=== PATIENT | female | born 1955 | race African-American/Black ===

== ENCOUNTER 2019-07-11 13:01 | Emergency (ER) | payer OTHER ==
[2019-07-11 13:11] VITALS: BP 182/83
[2019-07-11] MEDS ORDERED: ASPIRIN 81MG TABLET PO ONE (13:45)
[2019-07-11 14:41] LABS: BASOPHILS % 1.1 % (0.0-2.0); EOSINOPHILS % 2.4 % (0.0-5.0); HEMATOCRIT. 41.6 % (36.0-48.0); HEMOGLOBIN. 14.1 g/dL (12.0-16.0); LYMPHOCYTES % 42.2 % (20.0-50.0); MEAN CORPUSCULAR HEMOGLOBIN 28.5 pg (28.0-32.0); MEAN CORPUSCULAR VOLUME 84.2 fL (81.0-99.0); MEAN PLATELET VOLUME 8.8 fl (7.4-10.4); MONOCYTES % 10.5 % (2.0-8.0); NEUTROPHILS % 43.8 % (40.0-76.0); PLATELET 186 x1000/uL (130-400); RED BLOOD CELL COUNT 4.94 mill/uL (4.2-5.4); RED CELL DISTRIBUTION WIDTH 13.8 % (11.6-14.6)
[2019-07-11 14:43] LABS: CHLORIDE 108 mEq/L (98-107)
== END 2019-07-11 17:11 | disposition home or self-care (01) ==
LOC: ER 13:01
DX: R07.89 Other chest pain (principal); F41.9 Anxiety disorder, unspecified; F32.9 Major depressive disorder, single episode, unspecified; Z88.0 Allergy status to penicillin
CPT/HCPCS: 36415; 71045; 80053; 83880; 84484; 85025; 93005; 99285

== ENCOUNTER 2022-03-14 16:46 | Inpatient (IN) | payer OTHER, MEDICAID ==
[~2022-03-14] VITALS: Ht 154.9 cm; Wt 130.2 kg
[2022-03-14] MEDS ORDERED: METHYLPREDNISOLONE SOD SUCC 125 MG/2 ML VIAL IV STA (17:13)
[2022-03-14 17:51] LABS: BASOPHILS % 0.7 % (0.0-2.0); EOSINOPHILS % 5.9 % (0.0-5.0); HEMATOCRIT. 40.1 % (36.0-48.0); HEMOGLOBIN. 13.1 g/dL (12.0-16.0); LYMPHOCYTES % 41.8 % (20.0-50.0); MEAN CORPUSCULAR HEMOGLOBIN 27.6 pg (28.0-32.0); MEAN CORPUSCULAR VOLUME 84.2 fL (81.0-99.0); MEAN PLATELET VOLUME 8.2 fl (7.4-10.4); MONOCYTES % 7.5 % (2.0-8.0); NEUTROPHILS % 44.1 % (40.0-76.0); PLATELET 197 x1000/uL (130-400); RED BLOOD CELL COUNT 4.76 mill/uL (4.2-5.4); RED CELL DISTRIBUTION WIDTH 14.2 % (11.6-14.6)
[2022-03-14 18:07] LABS: CHLORIDE 109 mEq/L (98-107)
[2022-03-14] MEDS ORDERED: ALBUTEROL (0.083%) 2.5MG/3ML NEB HHN ONE (18:30)
[2022-03-14] MEDS ORDERED: ZOLPIDEM TARTRATE 5MG TABLET PO PRN (21:30)
[2022-03-14] MEDS ORDERED: IPRATROPIUM/ALBUTEROL 0.5-3(2.5)MG/3ML NEB NEB PRN (21:30)
[2022-03-14] MEDS ORDERED: GUAIFENESIN 200MG/10ML SUGAR FREE UDC PO PRN (21:30)
[2022-03-14] MEDS ORDERED: LEVOFLOXACIN 500MG PREMIX 100 ML IV SCH (21:30)
[2022-03-14] MEDS ORDERED: NITROGLYCERIN 0.4MG TABLET SL SL PRN (21:30)
[2022-03-14] MEDS ORDERED: ONDANSETRON HCL 4MG/2ML INJ IV PRN (21:30)
[2022-03-14] MEDS ORDERED: ACETAMINOPHEN 325MG TABLET PO PRN ×2 (21:30)
[2022-03-14] MEDS ORDERED: MAGNESIUM/ALUMINUM HYDROXIDE/SIMETHICONE 30ML UDC PO PRN (21:30)
[2022-03-14] MEDS ORDERED: IPRATROPIUM/ALBUTEROL 0.5-3(2.5)MG/3ML NEB HHN SCH (21:30)
[2022-03-14] MEDS ORDERED: ALBUTEROL (0.083%) 2.5MG/3ML NEB HHN PRN (21:45)
[2022-03-14] MEDS ORDERED: IPRATROPIUM BROMIDE (0.02%) 0.5MG/2.5ML NEB HHN PRN (21:45)
[2022-03-14 21:55] LABS: *AMPHETAMINES SCREEN URINE NEGATIVE (NEGATIVE); *BARBITURATES SCREEN URINE NEGATIVE (NEGATIVE); *BENZODIAZEPINES SCREEN URINE NEGATIVE (NEGATIVE); *COCAINE SCREEN URINE NEGATIVE (NEGATIVE); CANNABINOID URINE SCREEN NEGATIVE (NEGATIVE); METHADONE URINE SCREEN NEGATIVE (NEGATIVE); OPIATES URINE SCREEN PRESUMTIVE POSITIVE (NEGATIVE); PHENCYCLIDINE URINE SCREEN NEGATIVE (NEGATIVE)
[2022-03-14 22:03] LABS: T4 FREE 0.89 ng/dL (0.76-1.46)
[2022-03-14 22:27] LABS: FOLIC ACID (FOLATE) SERUM 13.2 ng/mL (>5.38)
[2022-03-14] MEDS: METHYLPREDNISOLONE SOD SUCC 125 MG/2 ML VIAL IV SCH (22:30)
[2022-03-15 05:07] LABS: HEMATOCRIT. 40.7 % (36.0-48.0); HEMOGLOBIN. 13.7 g/dL (12.0-16.0); MEAN CORPUSCULAR HEMOGLOBIN 28.3 pg (28.0-32.0); MEAN CORPUSCULAR VOLUME 83.9 fL (81.0-99.0); MEAN PLATELET VOLUME 8.6 fl (7.4-10.4); PLATELET 187 x1000/uL (130-400); RED BLOOD CELL COUNT 4.85 mill/uL (4.2-5.4); RED CELL DISTRIBUTION WIDTH 13.9 % (11.6-14.6)
[2022-03-15 05:35] LABS: CREATINE KINASE MB FRACTION 1.5 ng/mL (0.5-3.6)
[2022-03-15 05:50] LABS: CHLORIDE 105 mEq/L (98-107)
[2022-03-15 05:57] LABS: PHOSPHORUS 2.7 mg/dL (2.5-4.9)
[2022-03-15] MEDS: CLONIDINE 0.1MG TABLET PO PRN ×3 (06:42→23:54)
[2022-03-15 08:14] LABS: PLATELET ESTIMATE NORMAL
[2022-03-15] MEDS: METHYLPREDNISOLONE SOD SUCC 125 MG/2 ML VIAL IV SCH ×3 (10:08→22:22)
[2022-03-15] MEDS: FAMOTIDINE 20MG TABLET PO SCH ×2 (10:08→22:29)
[2022-03-15] MEDS: GUAIFENESIN 600MG ER TABLET PO SCH ×2 (10:09→22:29)
[2022-03-15] MEDS: ASPIRIN 81MG EC TABLET PO SCH (10:09)
[2022-03-15] MEDS: ENOXAPARIN 30MG/0.3ML SYR SUBCUT SCH ×2 (10:09→22:28)
[2022-03-15] MEDS: KETOROLAC 15MG/ML VIAL IV PRN (10:23)
[2022-03-15 10:59] VITALS: BP 184/92
[2022-03-15] MEDS: AMLODIPINE 5MG TABLET PO SCH (11:00)
[2022-03-15] MEDS ORDERED: LACTULOSE 20G/30ML UDC PO SCH (11:00)
[2022-03-15] MEDS: SUCRALFATE 1G TABLET PO SCH ×4 (11:54→22:29)
[2022-03-15] MEDS: LEVOFLOXACIN 500MG PREMIX 100 ML IV SCH (11:55)
[2022-03-15 12:00] VITALS: BP 97/66
[2022-03-15 16:00] VITALS: BP 166/64
[2022-03-15 16:26] LABS: CREATINE KINASE MB FRACTION 2.6 ng/mL (0.5-3.6)
[2022-03-15 18:33] VITALS: BP 188/88
[2022-03-15 20:00] VITALS: BP 160/78
[2022-03-15] MEDS: DOCUSATE SODIUM 100MG CAPSULE PO PRN (23:55)
[2022-03-16] VITALS: BP 112/92
[2022-03-16] MEDS: ALBUTEROL (0.083%) 2.5MG/3ML NEB HHN SCH ×6 (00:35→20:49)
[2022-03-16] MEDS: IPRATROPIUM BROMIDE (0.02%) 0.5MG/2.5ML NEB HHN SCH ×6 (00:36→20:48)
[2022-03-16 04:00] VITALS: BP 188/79
[2022-03-16] MEDS: METHYLPREDNISOLONE SOD SUCC 125 MG/2 ML VIAL IV SCH ×3 (06:45→21:54)
[2022-03-16] MEDS: KETOROLAC 15MG/ML VIAL IV PRN (06:54)
[2022-03-16 08:00] VITALS: BP_SYST 120; BP_SYST 180; BP_DIAS 71
[2022-03-16] MEDS: AMLODIPINE 5MG TABLET PO SCH (09:00)
[2022-03-16] MEDS: ENOXAPARIN 30MG/0.3ML SYR SUBCUT SCH ×2 (09:00→21:00)
[2022-03-16] MEDS: ASPIRIN 81MG EC TABLET PO SCH (09:00)
[2022-03-16] MEDS: FAMOTIDINE 20MG TABLET PO SCH ×2 (09:00→21:53)
[2022-03-16] MEDS: SUCRALFATE 1G TABLET PO SCH ×4 (09:00→21:53)
[2022-03-16] MEDS: GUAIFENESIN 600MG ER TABLET PO SCH ×2 (09:20→21:53)
[2022-03-16 12:00] VITALS: BP 148/52
[2022-03-16] MEDS: LEVOFLOXACIN 500MG PREMIX 100 ML IV SCH (12:28)
[2022-03-16 16:00] VITALS: BP 186/82
[2022-03-16] MEDS: CLONIDINE 0.1MG TABLET PO PRN (17:07)
[2022-03-16 20:00] VITALS: BP 194/82
[2022-03-16] MEDS: DOCUSATE SODIUM 100MG CAPSULE PO PRN (21:54)
[2022-03-17] VITALS: BP 198/86
[2022-03-17] MEDS: ALBUTEROL (0.083%) 2.5MG/3ML NEB HHN SCH ×5 (00:50→16:01)
[2022-03-17] MEDS: IPRATROPIUM BROMIDE (0.02%) 0.5MG/2.5ML NEB HHN SCH ×5 (00:50→16:01)
[2022-03-17] MEDS: CLONIDINE 0.1MG TABLET PO PRN ×2 (01:00→09:11)
[2022-03-17 04:00] VITALS: BP 192/92
[2022-03-17] MEDS: METHYLPREDNISOLONE SOD SUCC 125 MG/2 ML VIAL IV SCH (04:58)
[2022-03-17 08:00] VITALS: BP 190/90
[2022-03-17] MEDS: ENOXAPARIN 30MG/0.3ML SYR SUBCUT SCH (09:00)
[2022-03-17] MEDS: SUCRALFATE 1G TABLET PO SCH ×2 (09:11→13:07)
[2022-03-17] MEDS: AMLODIPINE 5MG TABLET PO SCH (09:12)
[2022-03-17] MEDS: GUAIFENESIN 600MG ER TABLET PO SCH (09:12)
[2022-03-17] MEDS: FAMOTIDINE 20MG TABLET PO SCH (09:12)
[2022-03-17] MEDS: ASPIRIN 81MG EC TABLET PO SCH (09:12)
[2022-03-17] MEDS ORDERED: AMLODIPINE 5MG TABLET PO NR (10:15)
[2022-03-17] MEDS ORDERED: ALBU6.7H3 INH (10:29)
[2022-03-17] MEDS ORDERED: ASPI-1406 PO (10:29)
[2022-03-17] MEDS ORDERED: SUCR1TAB30 MT (10:29)
[2022-03-17] MEDS ORDERED: AMLO10TA80 PO (10:29)
[2022-03-17] MEDS ORDERED: FAMO20TA8 PO (10:29)
[2022-03-17] MEDS: LEVOFLOXACIN 500MG PREMIX 100 ML IV SCH (10:54)
[2022-03-17 12:00] VITALS: BP 135/60
[2022-03-17 14:22] VITALS: BP 135/60
[2022-03-17 16:00] VITALS: BP 140/69
[2022-03-18] MEDS ORDERED: AMLODIPINE 10MG TABLET PO SCH (09:00)
== END 2022-03-17 16:40 | disposition home or self-care (01) | DRG 189 ==
LOC: ER 16:46 → MICUSO 20:32 → SUPCPDRO 21:18 → EDBEDREQ 22:40 → EDBEDREQTM 22:40 → 7EST 03-15 09:47
PROVIDERS: ADMIT Internal Medicine; ATTEND Internal Medicine
DX: J96.01 Acute respiratory failure with hypoxia (principal); M19.90 Unspecified osteoarthritis, unspecified site; I73.00 Raynaud's syndrome without gangrene; R73.9 Hyperglycemia, unspecified; E78.5 Hyperlipidemia, unspecified; F17.200 Nicotine dependence, unspecified, uncomplicated; F32.A Depression, unspecified; F41.9 Anxiety disorder, unspecified; Z88.0 Allergy status to penicillin; Z88.8 Allergy status to other drugs, medicaments and biological substances
CPT/HCPCS: 36415; 71045; 80053; 80061; 80305; 82550; 82553; 82607; 82746; 82962; 83036; 83540; 83550; 83735; 83880; 84100; 84439; 84443; 84484; 85025; 93005; 93306; 93970; 94640; 97162; 97166; 99285; J1650; J1885; J1956; J2930

== ENCOUNTER 2022-08-09 17:22 | Emergency (ER) | payer MEDICARE, MEDICAID ==
[~2022-08-09] VITALS: Ht 170.2 cm; Wt 160.0 kg
[~2022-08-09 17:22] MED LIST: ALBU6.7H3 INH; AMLO10TA80 PO; ASPI-1406 PO; FAMO20TA8 PO; SUCR1TAB30 MT
[2022-08-09 17:26] VITALS: BP 163/73; PULSE 68; RESP 18; TEMP 98.6; O2SAT 100
== END 2022-08-09 21:30 | disposition left against medical advice (07) ==
LOC: ER 17:22
DX: R06.02 Shortness of breath (principal); Z53.21 Procedure and treatment not carried out due to patient leaving prior to being seen by health care provider
CPT/HCPCS: 71045; 99281